=== PATIENT | female | born 1975 | race Asian ===

== ENCOUNTER 2016-06-03 07:45 | Inpatient (IN) | payer OTHER ==
[2016-06-02 14:09] LABS: Hematocrit 41 % (35-47); Hemoglobin 13.8 g/dl (12.0-16.0); Mean Corpuscular HGB Conc 34 g/dl (31-36); Mean Corpuscular Hemoglobin 31 pg (27-31); Mean Corpuscular Volume 93 fL (80-97); Mean Platelet Volume 8 um3 (7.4-10.4); Red Blood Count 4.44 10^6/ul (4.0-5.4); Red Cell Distribution Width 14 % (10.5-15); White Blood Count 6.2 10^3/ul (3.5-10.8)
[2016-06-03] MEDS ORDERED: ceFOXitin 2 GM IVPREMIX* 2 GM/50 ML BAG ONE (08:42)
[2016-06-03] MEDS ORDERED: Sodium Citrate/Citric Acid* 15 ML UDC ONE (09:25)
[2016-06-03] MEDS ORDERED: Morphine PF AMP (0.5MG/ML)* 5 MG/10 ML AMP ONE (10:08)
[2016-06-03] MEDS ORDERED: OXYTOCIN* 10 UNITS/ML 1 ML VIAL ONE (10:43)
[2016-06-03] MEDS ORDERED: oxyCODONE/Acetamin 5/325 MG* TAB PO PRN ×3 (11:22→13:16)
[2016-06-03] MEDS ORDERED: Naloxone* 0.4 MG/ML 1 ML VIAL IV PRN (11:22)
[2016-06-03] MEDS ORDERED: Ondansetron INJ* 2 MG/ML VIAL IV PRN (11:22)
[2016-06-03] MEDS ORDERED: Nalbuphine* 20 MG/ML 1 ML VIAL IV PRN (11:22)
[2016-06-03] MEDS ORDERED: Dibucaine 1% 28.35 GM TUBE PR PRN (13:16)
[2016-06-03] MEDS ORDERED: Glycerin ADULT SUPP PR PRN (13:16)
[2016-06-03] MEDS ORDERED: Witch Hazel PAD* JAR TOPICAL PRN (13:16)
[2016-06-03] MEDS ORDERED: Acetaminophen TAB* 325 MG PO PRN (13:16)
[2016-06-03] MEDS ORDERED: Oxytocin in LR* 20 UNITS/1,000 ML BAG IVPB ONE (14:00)
[2016-06-03] MEDS ORDERED: Oxytocin in LR* 20 UNITS/1,000 ML BAG IVPB SCH (14:00)
[2016-06-03] MEDS: Docusate CAP* 100 MG PO SCH ×2 (15:00→20:38)
[2016-06-03] MEDS: Ibuprofen TAB* 400 MG PO SCH ×2 (15:00→20:38)
[2016-06-03] MEDS: Simethicone TAB* 80 MG TAB.CHEW PO SCH ×2 (19:10→20:38)
[2016-06-04] MEDS: Ibuprofen TAB* 400 MG PO SCH (03:29)
[2016-06-04 07:14] LABS: Hematocrit 34 % (35-47); Hemoglobin 11.4 g/dl (12.0-16.0); Mean Corpuscular HGB Conc 34 g/dl (31-36); Mean Corpuscular Hemoglobin 31 pg (27-31); Mean Corpuscular Volume 93 fL (80-97); Mean Platelet Volume 8 um3 (7.4-10.4); Red Blood Count 3.64 10^6/ul (4.0-5.4); Red Cell Distribution Width 15 % (10.5-15); White Blood Count 12.6 10^3/ul (3.5-10.8)
[2016-06-04] MEDS ORDERED: Ferrous Gluconate TAB* 324 MG TAB PO SCH (09:00)
[2016-06-04] MEDS ORDERED: Levothyroxine TAB* 50 MCG TAB PO SCH (09:00)
[2016-06-04] MEDS: Prenatal Vitamin TAB PO SCH (09:27)
[2016-06-04] MEDS: Simethicone TAB* 80 MG TAB.CHEW PO SCH ×4 (09:27→20:29)
[2016-06-04] MEDS: Docusate CAP* 100 MG PO SCH ×3 (09:27→20:29)
[2016-06-04] MEDS: Ibuprofen TAB* 600 MG PO PRN ×2 (11:41→17:51)
--- NOTE | 2016-06-04 19:00 | PTEDU ---
Patient Name: JESSE SCHUMACHER JESSE SCHUMACHER selected video: Follow Me Mum: [facility] [employer] to view on 7 at 6:59:13 PM from [id number]
--- NOTE | 2016-06-05 00:18 | OP ---
OPERATIVE REPORT: DATE OF OPERATION: 06/03/16 DATE OF : 79 SURGEON: Thalia Henriquez MD [employer] MANAGER: Boni Jacob CNM ANESTHESIOLOGIST: Dr. Ng. ANESTHESIA: Spinal. PRE-OP DIAGNOSIS: Intrauterine at 40-1/7 weeks, desires primary section. POST-OP DIAGNOSES: Intrauterine at 40-1/7 weeks, desires primary section, delivered. OPERATIVE PROCEDURE: Primary low transverse section. FINDINGS: Revealed a vertex female infant, left occiput transverse. 7 # 8 oz. Apgars were 9 at 1 minute and 9 at 5 minutes. Placenta was posterior, insertion. Three-vessel cord intact, manually extracted. Uterus had an anterior fibroid approximately 3.5 cm about 3 cm above the lower uterine segment incision. Normal-appearing tubes and ovaries bilaterally. ESTIMATED BLOOD LOSS: 500 cc. URINE OUTPUT: 250 cc of clear yellow urine. FLUIDS: 1600 cc of crystalloid. COMPLICATIONS: None apparent. DISPOSITION: Stable to recovery room. DESCRIPTION OF PROCEDURE: The patient was placed in dorsal lithotomy position. Abdomen was prepped and draped in the sterile standard fashion after undergoing spinal anesthesia. The patient after sterile prep and drape was identified with the universal protocol for correct procedure, patient, and position. Anesthesia was tested to appropriate level. An incision was made 2 fingerbreadths above the pubic symphysis. This was carried down through to the fascia. Fascia was scored in the midline and the fascial incision was extended laterally and superiorly using Perkins scissors. The peritoneum was then entered bluntly and the peritoneal incision was extended superiorly and inferiorly while directly visualizing the bowel and bladder. Bladder blade was inserted. A small 3.5 cm anterior fibroid was identified. Below this, an incision was made with a scalpel with tenting up and Allis was carried down through to the membranes and the incision was extended laterally and superiorly using bandage scissors. Amniotomy was created through Allis with clear fluid. The infant was found to be a left occiput transverse position. Attempt was made. A delivery vacuum was then applied x2 applications for delivery of the head. Anterior and posterior shoulder delivered. No nuchal cord was appreciated. No meconium was noted. The cord was then doubly clamped and cut. The was vigorous at delivery and crying and then handed off to awaiting soda fountain clerk. Appropriate cord blood was then obtained. Placenta was then delivered manually and noted to be intact and three-vessel cord. The uterus was then exteriorized and the uterine cavity was explored and noted to be free of any membranes or placental tissue. Uterine incision itself was reapproximated using 0 Vicryl running locked and second layer running imbricated. The tubes and ovaries were noted to have a normal appearance. Uterus was returned intra-abdominally. Colic gutters were lavaged. Hemostasis was assured at the hysterotomy site. The peritoneum was then reapproximated using 3-0 Vicryl in a running fashion. Subfascial area was visualized and noted to be hemostatic. The fascia was the reapproximated using 0 Vicryl x2 in a running fashion. Subcu was lavaged. Hemostasis assured with Bovie coagulation and a subcuticular stitch of 4- 0 Monocryl was then applied. Steris ' and Mastisol applied. All sponge, instrument, and blade counts were correct throughout the case. The patient tolerated the procedure well and went to recovery room in stable condition. [id number]/[facility] #: [id number] [facility]ITALXavi
[2016-06-05] MEDS: Simethicone TAB* 80 MG TAB.CHEW PO SCH ×4 (08:32→21:17)
[2016-06-05] MEDS: Ibuprofen TAB* 600 MG PO PRN ×2 (08:32→19:12)
[2016-06-05] MEDS: Docusate CAP* 100 MG PO SCH ×3 (08:32→21:17)
[2016-06-05] MEDS: Prenatal Vitamin TAB PO SCH (08:32)
[2016-06-05] MEDS ORDERED: Levothyroxine TAB* 50 MCG TAB PO SCH (21:00)
[2016-06-06 07:46] VITALS: BP 106/60
[2016-06-06] MEDS: Docusate CAP* 100 MG PO SCH (07:48)
[2016-06-06] MEDS: Ibuprofen TAB* 600 MG PO PRN (07:49)
[2016-06-06] MEDS: Simethicone TAB* 80 MG TAB.CHEW PO SCH (07:50)
== END 2016-06-06 12:11 | disposition home or self-care (01) | DRG 766 ==
LOC: MCHOB 07:59
PROVIDERS: ADMIT Obstetrics & Gynecology; ATTEND Obstetrics & Gynecology
PROC: 10D00Z1 Extraction of Products of Conception, Low, Open Approach (ICD-10-PCS; principal; 2016-06-03 09:45)
DX: O48.0 Post-term pregnancy (principal); E03.9 Hypothyroidism, unspecified; O99.284 Endocrine, nutritional and metabolic diseases complicating childbirth; O09.513 Supervision of elderly primigravida, third trimester; Z3A.40 40 weeks gestation of pregnancy; Z37.0 Single live birth
CPT/HCPCS: 36415; 85025; 85027; 86850; 86900; 86901; A9270-GY; J0694; J2590